=== PATIENT | male | born 2000 | race Caucasian/White ===

== ENCOUNTER 2023-05-14 14:52 | Outpatient (CLI) | payer BC, SELFPAY ==
[2023-05-14 15:24] LABS: Basophils % 0.5 % (0.1-2.0); Eosinophils # 0.8 K/mm3 (0.0-0.4); Eosinophils % 11.3 % (0.1-12.0); Hematocrit 50.9 % (42.0-52.0); Hemoglobin 16.7 g/dL (14.1-18.0); Mean Corpuscular HGB Conc 32.8 g/dL (31.8-35.4); Mean Corpuscular Hemoglobin 29.7 pg (27.0-31.2); Mean Corpuscular Volume 90.6 fl (80-94); Mean Platelet Volume 7.6 fl (7.4-10.4); Monocytes # 0.5 K/mm3 (0.1-1.0); Monocytes % 7.3 % (1.7-9.3); Neutrophils # 3.7 K/mm3 (1.8-7.8); Platelet Count 308 K/mm3 (142-424); Red Blood Count 5.62 M/mm3 (4.60-6.20); Red Cell Distribution Width 14.2 % (11.5-17.5)
[2023-05-14 16:28] LABS: Alanine Aminotransferase 25 U/L (12-78); Albumin Level 4.6 g/dl (3.5-5.0); Albumin/Globulin Ratio 2.2 (1.1-1.8); Alkaline Phosphatase 80 U/L (38-126); Anion Gap 8.4 mEq/L (5-15); Aspartate Amino Transferase 25 U/L (17-59); Bilirubin,Total 0.7 mg/dl (0.2-1.3); Blood Urea Nitrogen 17 mg/dl (9-20); Calcium 9.6 mg/dl (8.4-10.2); Carbon Dioxide 32 mmol/L (22.0-30.0); Chloride 102 mmol/L (98-107); Estimated Glomerular Filt Rate 106 ml/min (>60); GFR (African American) 128 ML/MIN (>60); Globulin 2.1 g/dL (1.3-3.2); Glucose 86 mg/dl (74-100); Potassium 4.4 mmoL/L (3.5-5.1); Sodium 138 mmol/L (136-145); Total Protein,Serum 6.7 g/dl (6.3-8.2)
[2023-05-14 16:59] LABS: Thyroid Stimulating Hormone 2.01 uIU/mL (0.465-4.68)
[2023-05-15 15:11] LABS: H. pylori Breath Test Negative (Negative)
== END 2023-05-14 23:59 ==
LOC: LAB 14:58
PROVIDERS: PCP Internal Medicine Adolescent Medicine; Visit Provider Internal Medicine Adolescent Medicine
DX: K58.1 Irritable bowel syndrome with constipation (principal); R10.84 Generalized abdominal pain
CPT/HCPCS: 36415; 80053; 83013; 84443; 85025